=== PATIENT | female | born 1955 | race Caucasian/White ===

== ENCOUNTER 2017-11-18 15:50 | Emergency (ER) | payer BC ==
[~2017-11-18] VITALS: Ht 172.7 cm; Wt 73.0 kg
[~2017-11-18 15:50] MED LIST: ALBU1AER9 INH; ATV/1 PO; LOSA1TAB PO; MONT1TAB3 PO; ONDA8TAB12 PO; RIZA10TA19 PO; VENL1CAP92 PO
[2017-11-18 15:59] VITALS: TEMP 37.1; Ht 172.7 cm; Wt 73.0 kg
[2017-11-18] MEDS ORDERED: SODIUM CHLORIDE 0.9% 1000ML 1,000 ML IV STA (18:21)
--- NOTE | 2017-11-18 18:31 | EMERGENCY ROOM VISIT NOTE ---
History Report prepared by Chantal: Teena Pierson Under the Supervision of: Dr. Riley Rojas M.D. 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 She reports that when she driving, she felt a "[place] Horse" in her chest that lasted for about 20 minutes. She states the pain is localized to her chest, she felt hot during the episode, and has associated SOB. She notes that deep breaths make the tightness feel better. She denies nausea but had some when her doctor gave her some aspirin. She has had multiple episodes like this in the past, but this one is a little different because of the SOB. She is accompanied by her who reports he had to drive her here. Source of History: patient, spouse/significant other () Onset: 1415 today Position: chest Quality: cramping Modifying Factors (Relieving): breathing (deep breaths) Associated Symptoms: + SOB, No nausea Note: Positive warmth during episode. Review of Systems See HPI for pertinent positives and negatives. A total of ten systems were reviewed and were otherwise negative. Past Medical & Surgical Medical Problems: (1) Asthma Family History Heart disease Social History Smoking Status: Never Smoker Alcohol Use: none Drug Use: none Occupation Status: employed Current/Historical Medications Scheduled Acetaminophen (Tylenol), 1,000 MG PO PRN UD Aspirin (Aspirin), 81 MG PO DAILY Aspirin (Aspirin), 325 MG PO TODAY Fluoxetine HCl (Fluoxetine HCl), 10 MG PO DAILY Losartan Potassium (Cozaar), 100 MG PO DAILY Ondansetron (Ondansetron HCl), 4 MG PO PRN UD Rizatriptan Benzoate (Rizatriptan Benzoate), 10 MG PO PRN UD Zolpidem Tartrate (Zolpidem Tartrate), 5 MG PO HS Scheduled PRN [Proair 108], 2 PUFF INH Q4 PRN for SOB/Wheezing Allergies Coded Allergies: Phenylephrine (Verified Allergy, Severe, NERVOUSNESS, 11/18/17) Uncoded Allergies: NDA (Allergy, Unknown, 12/16/03) Physical Exam Vital Signs Date Time Temp Pulse Resp B/P (MAP) Pulse Ox O2 Delivery O2 Flow Rate FiO2 11/18/17 21:50 63 20 144/81 98 11/18/17 20:45 59 16 97 11/18/17 19:40 63 16 157/90 98 Room Air 11/18/17 18:38 99 Room Air 11/18/17 18:38 59 173/84 100 Room Air 11/18/17 18:35 64 11/18/17 15:59 37.1 77 16 163/83 99 Physical Exam GENERAL: Awake, alert, well-appearing, in no distress HENT: Normocephalic, atraumatic. Oropharynx unremarkable. EYES: Normal conjunctiva. Sclera non-icteric. NECK: Supple. No nuchal rigidity. FROM. No JVD. RESPIRATORY: Clear to auscultation. CARDIAC: Regular rate, normal rhythm. Extremities warm and well perfused. Pulses equal. ABDOMEN: Soft, non-distended. No tenderness to palpation. No rebound or guarding. No masses. RECTAL: Deferred. MUSCULOSKELETAL: Chest examination reveals no tenderness. The back is symmetrical on inspection without obvious abnormality. There is no CVA tenderness to palpation. No joint edema. LOWER EXTREMITIES: Calves are equal size bilaterally and non-tender. No edema. No discoloration. NEURO: Normal sensorium. No sensory or motor deficits noted. SKIN: No rash or jaundice noted. Medical Decision & Procedures ER Provider Diagnostic Interpretation: Radiology results as stated below per my review and radiologist interpretation: CHEST ONE VIEW PORTABLE CLINICAL HISTORY: CHEST PAIN dyspnea COMPARISON STUDY: 09/11/2015 FINDINGS: The bones soft tissues and hemidiaphragms are normal. The cardiomediastinal silhouette is normal. The lungs are clear. The pulmonary vasculature is normal. Slight chronic interstitial prominence unchanged from the prior exam. IMPRESSION: Chronic change. No acute process. The above report was generated using voice recognition software. It may contain grammatical, syntax or spelling errors. Electronically signed by: James Dawson M.D. 11/18/2017 6:50 PM Dictated Date/Time: 11/18/2017 6:49 PM Laboratory Results 11/18/17 18:30 Red Blood Count 5.01, Mean Corpuscular Volume 89.6, Mean Corpuscular Hemoglobin 30.9, Mean Corpuscular Hemoglobin Concent 34.5, Mean Platelet Volume 9.3, Neutrophils (%) (Auto) 78.2, Lymphocytes (%) (Auto) 15.8, Monocytes (%) (Auto) 5.1, Eosinophils (%) (Auto) 0.1, Basophils (%) (Auto) 0.6, Neutrophils # (Auto) 6.84, Lymphocytes # (Auto) 1.38, Monocytes # (Auto) 0.45, Eosinophils # (Auto) 0.01, Basophils # (Auto) 0.05 11/18/17 18:30 Test 11/18/17 18:30 11/18/17 20:25 White Blood Count 8.75 K/uL (4.8-10.8) Red Blood Count 5.01 M/uL (4.2-5.4) Hemoglobin 15.5 g/dL (12.0-16.0) Hematocrit 44.9 % (37-47) Mean Corpuscular Volume 89.6 fL (80-100) Mean Corpuscular Hemoglobin 30.9 pg (25-34) Mean Corpuscular Hemoglobin Concent 34.5 g/dl (32-36) Platelet Count 262 K/uL (130-400) Mean Platelet Volume 9.3 fL (7.4-10.4) Neutrophils (%) (Auto) 78.2 % Lymphocytes (%) (Auto) 15.8 % Monocytes (%) (Auto) 5.1 % Eosinophils (%) (Auto) 0.1 % Basophils (%) (Auto) 0.6 % Neutrophils # (Auto) 6.84 K/uL (1.4-6.5) Lymphocytes # (Auto) 1.38 K/uL (1.2-3.4) Monocytes # (Auto) 0.45 K/uL (0.11-0.59) Eosinophils # (Auto) 0.01 K/uL (0-0.5) Basophils # (Auto) 0.05 K/uL (0-0.2) RDW Standard Deviation 41.5 fL (36.4-46.3) RDW Coefficient of Variation 12.7 % (11.5-14.5) Immature Granulocyte % (Auto) 0.2 % Immature Granulocyte # (Auto) 0.02 K/uL (0.00-0.02) Anion Gap 8.0 mmol/L (3-11) Est Creatinine Clear Calc Drug Dose 67.7 ml/min Estimated GFR () 82.2 Estimated GFR (Non- 70.9 BUN/Creatinine Ratio 12.7 (10-20) Calcium Level 9.6 mg/dl (8.5-10.1) Total Bilirubin 0.6 mg/dl (0.2-1) Direct Bilirubin 0.1 mg/dl (0-0.2) Aspartate Amino Transf (AST/SGOT) 24 U/L (15-37) Alanine Aminotransferase (ALT/SGPT) 43 U/L (12-78) Alkaline Phosphatase 90 U/L (45-117) Total Protein 8.2 gm/dl (6.4-8.2) Albumin 4.3 gm/dl (3.4-5.0) Lipase 132 U/L (73-393) Troponin I < 0.015 ng/ml (0-0.045) Laboratory results reviewed by me Medications Administered Medications (Trade) Dose Ordered Sig/Jarrod Route Start Time Stop Time Status Last Admin Dose Admin Sodium Chloride 1,000 ml @ 999 mls/hr Q1H1M STAT IV 11/18/17 18:21 11/18/17 19:21 DC 11/18/17 18:50 999 MLS/HR ECG Indication: chest pain Rhythm: sinus rhythm (short KS interval ) Findings: RBBB (incomplete), no acute ischemic change, other (QRS 98) Comparison ECG Date: no prior available Change: Patient's electrocardiogram interpreted by me. ED Course 1817: The patient was evaluated in room B2. A complete history and physical exam was performed. 2114: I reevaluated the patient. Discussed results and discharge instructions: She verbalized understanding and agreement. The patient is ready for discharge. Medical Decision I reviewed the patient's past medical history, medications, and the nursing notes as described above. Differential diagnosis: Etiologies such as cardiac ischemia, aortic dissection, pulmonary embolism, pneumonia, pneumothorax, musculoskeletal, infections, pericarditis, myocarditis , esophageal rupture, gastrointestinal, as well as others were entertained. The patient is a 62-year-old woman with a past medical history of high blood pressure who presents emergency Department with episode of chest pain that occurred at 2:30 PM today lasting 20 minutes described as a heaviness and cramping in her chest with associated shortness of breath per hpi. Note the patient went to her PCPs office as scheduled well check when she was having the pain. He was given aspirin and had symptoms resolved. EKG at PCPs office, [facility], demonstrated sinus rhythm with short KS interval with PACs with aberrant conduction. On arrival the patient EKG is sinus rhythm with short KS interval with incomplete right bundle branch block with a QRS of 98. Review prior EKGs demonstrates intermittent incomplete right bundle-branch block with varying QRS. Labs unremarkable including WBC and initial troponin within normal limits. The patient has a heart score of 3, low risk. Delta to her troponin was sent for additional reassurance and was negative. Thus given negative troponin greater than 6 hours from onset of symptoms patient's episode is unlikely be related to ACS. During the course of her ED evaluation and observation the patient remained symptom free. Sx possible related to patient' s PACs. Plan for PCP follow-up for additional testing and possible cardiology referral. Findings and plan for follow-up reviewed with patient. Patient agreeable and d/c'd per discharge instructions. Medication Reconcilliation Current Medication List: was personally reviewed by me Blood Pressure Screening Patient's blood pressure: Elevated blood pressure Blood pressure disposition: Did not require urgent referral Impression Primary Impression: Substernal precordial chest pain Scribe Attestation The scribe's documentation has been prepared under my direction and personally reviewed by me in its entirety. I confirm that the note above accurately reflects all work, treatment, procedures, and medical decision making performed by me. Departure Information Dispostion Home / Self-Care Referrals No Doctor, Assigned (PCP) Forms Call Back Authorization, HOME CARE DOCUMENTATION FORM, IMPORTANT VISIT INFORMATION Patient Instructions ED Chest Pain Atypical Unkn Cause, ED Palpitations, My [facility] Additional Instructions Please follow up with your primary care physician next week for re-evaluation and possible cardiology referral for further testing such as a stress test or possible holter monitor. The cause of your symptoms is unclear at this time but may have been due to premature atrial contractions (PACs), which are typically benign. Otherwise, your exam, EKG, chest xray, and lab results including 2 heart enzymes did not show signs of an emergent condition at this time. Drink plenty of fluids to ensure hydration. Return to the emergency department for worsening symptoms as described in the accompanying instructions.
[2017-11-18 18:38] VITALS: O2SAT 99
--- NOTE | 2017-11-18 18:51 | DIAGNOSTIC IMAGING REPORT ---
CHEST ONE VIEW PORTABLE CLINICAL HISTORY: CHEST PAIN dyspnea COMPARISON STUDY: 09/11/2015 FINDINGS: The bones soft tissues and hemidiaphragms are normal. The cardiomediastinal silhouette is normal. The lungs are clear. The pulmonary vasculature is normal. Slight chronic interstitial prominence unchanged from the prior exam. IMPRESSION: Chronic change. No acute process. The above report was generated using voice recognition software. It may contain grammatical, syntax or spelling errors. Electronically signed by: James Dawson M.D. 11/18/2017 6:50 PM Dictated Date/Time: 11/18/2017 6:49 PM
[2017-11-18 18:55] LABS: BASO % 0.6 %; BASO ABS # 0.05 K/uL (0-0.2); EOS % 0.1 %; EOS ABS # 0.01 K/uL (0-0.5); HEMATOCRIT 44.9 % (37-47); HEMOGLOBIN 15.5 g/dL (12.0-16.0); IG# 0.02 K/uL (0.00-0.02); LYMPH % 15.8 %; LYMPH ABS # 1.38 K/uL (1.2-3.4); MEAN CELL VOLUME 89.6 fL (80-100); MEAN CORPUSCULAR HEMOGLOBIN 30.9 pg (25-34); MEAN CORPUSCULAR HGB CONC 34.5 g/dl (32-36); MEAN PLATELET VOLUME 9.3 fL (7.4-10.4); MONO % 5.1 %; MONO ABS # 0.45 K/uL (0.11-0.59); NEUT % 78.2 %; NEUT ABS # 6.84 K/uL (1.4-6.5); PLATELET COUNT 262 K/uL (130-400); RED CELL DISTRIBUTION WIDTH CV 12.7 % (11.5-14.5); RED CELL DISTRIBUTION WIDTH SD 41.5 fL (36.4-46.3); WHITE BLOOD COUNT 8.75 K/uL (4.8-10.8)
[2017-11-18 19:11] LABS: ALBUMIN 4.3 gm/dl (3.4-5.0); ALT/SGPT 43 U/L (12-78); BLOOD UREA NITROGEN 11 mg/dl (7-18); CALCIUM 9.6 mg/dl (8.5-10.1); CARBON DIOXIDE 26 mmol/L (21-32); CREATININE 0.88 mg/dl (0.60-1.20); GLUCOSE 102 mg/dl (70-99); LIPASE 132 U/L (73-393); POTASSIUM 3.9 mmol/L (3.5-5.1); SODIUM 138 mmol/L (136-145)
[2017-11-18 19:16] LABS: ALKALINE PHOSPHATASE 90 U/L (45-117); AST/SGOT 24 U/L (15-37); TOTAL PROTEIN 8.2 gm/dl (6.4-8.2)
[2017-11-18] MEDS ORDERED: ZOLP5TAB6 PO (19:31)
[2017-11-18] MEDS ORDERED: RIZA1TAB11 PO (19:31)
[2017-11-18] MEDS ORDERED: ACET-1256 PO (19:31)
[2017-11-18] MEDS ORDERED: ASPI325T4 PO (19:31)
[2017-11-18] MEDS ORDERED: LOSA100T65 PO (19:31)
[2017-11-18] MEDS ORDERED: ONDA4TAB9 PO (19:31)
[2017-11-18] MEDS ORDERED: FLUO10CA24 PO (19:31)
[2017-11-18] MEDS ORDERED: PROAIR 108 INH (19:31)
[2017-11-18] MEDS ORDERED: ASPI1TAB83 PO (21:45)
[2017-11-18 21:50] VITALS: BP 144/81; PULSE 63; O2SAT 98
== END 2017-11-18 21:50 | disposition home or self-care (01) ==
LOC: C.EDB 15:53
DX: R07.2 Precordial pain (principal); R06.02 Shortness of breath; I49.1 Atrial premature depolarization; I45.19 Other right bundle-branch block; R94.31 Abnormal electrocardiogram [ECG] [EKG]; R03.0 Elevated blood-pressure reading, without diagnosis of hypertension; J45.909 Unspecified asthma, uncomplicated; Z79.82 Long term (current) use of aspirin; Z88.8 Allergy status to other drugs, medicaments and biological substances; Z82.49 Family history of ischemic heart disease and other diseases of the circulatory system